=== PATIENT | female | born 1995 | race Caucasian/White ===

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

== ENCOUNTER 2017-06-13 20:01 | Emergency (ER) | payer BC ==
[~2017-06-13] VITALS: Ht 160 cm; Wt 73.3 kg
[2017-06-13] MEDS ORDERED: PAXIL 10MG10 MG PO (20:07)
[2017-06-13 21:11] LABS: COLLECTION METHOD CLEAN CATCH
[2017-06-13 21:14] LABS: BASO # 0.1 (0.0-0.2); BASO % 0.6 % (0.0-2.0); EOS % 0.3 % (0-4.0); GRAN # 8.4 (1.4-6.5); GRAN % 82.7 % (42.2-75.2); HEMATOCRIT 42.1 % (35.0-45.0); HEMOGLOBIN 14.1 g/dl (12.0-15.0); LYMPH # 0.7 (1.2-3.4); LYMPH % 6.8 % (20.0-51.0); MEAN CELL VOLUME 89 fl (80.0-95.0); MEAN CORPUSCULAR HEMOGLOBIN 30 pg (26.0-32.0); MEAN CORPUSCULAR HGB CONC 34 g/dl (33.0-37.0); MEAN PLATELET VOLUME 9.8 fl (7.4-10.4); MONO # 0.9 (0.1-0.6); MONO % 9.3 % (1.7-9.3); PLATELET COUNT 231 K/mm3 (130-400); RED BLOOD COUNT 4.73 M/mm3 (4.10-5.30)
[2017-06-13 21:18] LABS: MUCOUS Present /lpf; PH 6 (5-8); SQUAMOUS EPITHELIAL 0-2 /hpf; URINE APPEARANCE Clear; URINE BACTERIA None Seen /hpf; URINE BILIRUBIN Negative (NEGATIVE); URINE BLOOD Negative (NEGATIVE); URINE COLOR Yellow; URINE GLUCOSE Negative (NEGATIVE); URINE KETONE Negative (NEGATIVE); URINE LEUKOCYTE ESTERASE Trace (NEGATIVE); URINE NITRATE Negative (NEGATIVE); URINE PROTEIN(semi-quant) Negative (NEGATIVE); URINE RBC 0-2 /hpf
[2017-06-13 21:26] LABS: ALBUMIN 4.5 gm/dL (3.5-5.0); BILIRUBIN,TOTAL 0.7 mg/dL (0.0-1.0); C-REACTIVE PROTEIN 1.4 mg/dL (0.0-0.9); CALCIUM 9.4 mg/dL (8.4-10.2); CREATININE, serum 0.6 mg/dL (0.52-1.25); POTASSIUM 3.6 mmol/L (3.4-5.0)
[2017-06-13 22:27] VITALS: BP 118/73; TEMP 100.6
[2017-06-13] MEDS ORDERED: ZOVIRAX400 MG PO (22:49)
[2017-06-13] MEDS ORDERED: DOXYCYCLINE 10100 MG PO (22:49)
[2017-06-13] MEDS ORDERED: NORCO 325 MG-51 TAB PO (22:49)
[2017-06-13 23:04] VITALS: PULSE 96
== END 2017-06-13 23:00 | disposition home or self-care (01) ==
LOC: COL.ER 20:01
PROVIDERS: Emergency Medicine
DX: J18.9 Pneumonia, unspecified organism (principal); A60.00 Herpesviral infection of urogenital system, unspecified; F32.9 Major depressive disorder, single episode, unspecified; Z88.0 Allergy status to penicillin
CPT/HCPCS: J2405; J7030

== ENCOUNTER → 2017-08-22 | Outpatient (CLI) | payer BC ==
[~2017-08-22] MED LIST: DOXYCYCLINE 10100 MG PO; NORCO 325 MG-51 TAB PO; PAXIL 10MG10 MG PO; ZOVIRAX400 MG PO
== END ==
LOC: MC.RAD 07:30
DX: D24.2 Benign neoplasm of left breast (principal); D24.1 Benign neoplasm of right breast

== ENCOUNTER 2018-04-16 05:11 | Emergency (ER) | payer BC ==
[~2018-04-16] VITALS: Ht 157.5 cm; Wt 76.8 kg
[2018-04-16] MEDS ORDERED: TRI-SPRINTEC 281 TAB PO (05:21)
[2018-04-16] MEDS ORDERED: PROBIOTIC-MAJOR PO (05:21)
[2018-04-16] MEDS ORDERED: FLAGYL500 MG PO (05:21)
[2018-04-16 06:19] VITALS: TEMP 97.4
[2018-04-16] MEDS ORDERED: NORCO 325 MG-51 TAB PO (07:23)
[2018-04-16 07:41] VITALS: BP 117/81; PULSE 97
== END 2018-04-16 07:46 | disposition home or self-care (01) ==
LOC: COL.ER 05:11
DX: T21.21XA Burn of second degree of chest wall, initial encounter (principal); T21.01XA Burn of unspecified degree of chest wall, initial encounter; T23.112A Burn of first degree of left thumb (nail), initial encounter; T23.111A Burn of first degree of right thumb (nail), initial encounter; T25.111A Burn of first degree of right ankle, initial encounter; X12.XXXA Contact with other hot fluids, initial encounter; Y92.009 Unspecified place in unspecified non-institutional (private) residence as the place of occurrence of the external cause
CPT/HCPCS: J1170

== ENCOUNTER → 2018-10-19 | Outpatient (CLI) | payer BC ==
[~2018-10-19] MED LIST changes: +FLAGYL500 MG PO; +PROBIOTIC-MAJOR PO; +TRI-SPRINTEC 281 TAB PO
== END ==
LOC: COL.RAD 10:11
DX: R10.84 Generalized abdominal pain (principal)

== ENCOUNTER → 2020-02-06 | Outpatient (CLI) | payer BC | LOC: MC.RAD 08:51 | DX: D24.1 Benign neoplasm of right breast (principal); N63.20 Unspecified lump in the left breast, unspecified quadrant ==

== ENCOUNTER → 2020-02-19 | Outpatient (CLI) | payer BC | LOC: MC.RAD 08:00 | DX: N63.20 Unspecified lump in the left breast, unspecified quadrant (principal) ==

== ENCOUNTER 2020-10-07 09:36 | Emergency (ER) | payer OTHER ==
[~2020-10-07] VITALS: Ht 160 cm; Wt 77.3 kg
[2020-10-07 09:45] VITALS: BP 112/77; TEMP 98.4
[2020-10-07] MEDS ORDERED: PAMELOR 10MG10 MG PO (09:49)
[2020-10-07] MEDS ORDERED: FLEXERIL 1010 MG/TAB PO (10:37)
[2020-10-07 11:01] VITALS: PULSE 18
== END 2020-10-07 11:01 | disposition home or self-care (01) ==
LOC: COL.ER 09:36
DX: S06.0X0A Concussion without loss of consciousness, initial encounter (principal); S50.12XA Contusion of left forearm, initial encounter; S50.11XA Contusion of right forearm, initial encounter; S80.02XA Contusion of left knee, initial encounter; S00.91XA Abrasion of unspecified part of head, initial encounter; M54.2 Cervicalgia; G43.909 Migraine, unspecified, not intractable, without status migrainosus; F32.9 Major depressive disorder, single episode, unspecified; Z79.899 Other long term (current) drug therapy; W01.198A Fall on same level from slipping, tripping and stumbling with subsequent striking against other object, initial encounter

== ENCOUNTER 2020-12-23 10:24 | Outpatient (CLI) | payer BC ==
[2020-12-23 10:15] VITALS: BP 99/62; PULSE 98; TEMP 98.9
[~2020-12-23 10:24] MED LIST changes: +FLEXERIL 1010 MG/TAB PO; +PAMELOR 10MG10 MG PO
[2020-12-23 10:30] VITALS: BP 93/56; PULSE 116; TEMP 98.9
[2020-12-23] MEDS ORDERED: NURTEC ODT75 MG PO (10:44)
[2020-12-23 10:45] VITALS: BP 95/54; PULSE 108; TEMP 98.9
[2020-12-23 11:00] VITALS: BP 92/48; PULSE 99; TEMP 98.9
[2020-12-23 11:15] VITALS: BP 101/62; PULSE 98; TEMP 98.9
[2020-12-23 11:30] VITALS: BP 95/48; PULSE 99; TEMP 98.9
== END 2020-12-23 11:40 | disposition home or self-care (01) ==
LOC: EUO 10:24
DX: U07.1 COVID-19 (principal); E66.9 Obesity, unspecified; Z68.20 Body mass index [BMI] 20.0-20.9, adult
CPT/HCPCS: Q0244